=== PATIENT | male | born 1980 | race Caucasian/White ===

== ENCOUNTER 2025-03-06 03:49 | Observation (INO) ==
--- NOTE | 2025-03-06 04:08 | Emergency Department Note ---
History of Present Illness General Chief complaint: Rectal Pain Stated complaint: poss hernia or perianal abcess Time Seen by Provider: 03/06/25 04:00 History of Present Illness Maximum Pain Intensity: 8 This 44-year-old male presents ER complaining of rectal pain for the past 3 days steadily getting worse. Patient denies rectal bleeding, injury to the area, fever, chills or any other medical complaints. No history of pilonidal abscess. No diabetes. Home Medications Medication Instructions Recorded Confirmed Type No Known Home Medications 08/27/19 08/27/19 History omeprazole 40 mg capsule,delayed 40 mg PO DAILY 03/06/25 03/06/25 History release Allergies Allergy/AdvReac Type Severity Reaction Status Date / Time No Known Allergies Allergy Mild Verified 03/06/25 05:13 Past Med/Surg History Problem List (Updated 03/06/25 @ 04:40 by Charleen Meredith PA-C) Perianal abscess (Acute) Encounter for physical examination related to employment Medical History (Updated 03/06/25 @ 04:40 by Charleen Meredith PA-C) No significant past medical history Social History Smoking Status: Current every day smoker Preferred Language: Spanish Feels Safe at Home: Yes Review of Systems A total of 10 systems reviewed and were otherwise negative Physical Exam Vital Signs Vital Signs - 24 hr 03/06/25 03:53 03/06/25 04:20 Temperature 36.6 C Temperature Source Temporal Artery Scan Pulse Rate 75 76 Pulse Rhythm Regular Pulse Strength Normal Respiratory Rate 18 18 Respiratory Effort / Characteristics Non-Labored Spontaneous Respiratory Depth Normal Respiratory Pattern Regular Blood Pressure 132/93 Blood Pressure Mean 106 Blood Pressure Position Sitting Pulse Oximetry 98 98 Oxygen Delivery Method Room Air Room Air Sepsis Recent Fever Within 48 Hours No Sepsis New/Unexplained Change in Mental Status N/A Sepsis Action Taken by Nursing No Action Required VITALS: Vitals are noted on the nurse's note and reviewed by myself. Vital signs stable. GENERAL: Pleasant patient, in no acute distress, nondiaphoretic, well-developed well-nourished. SKIN: Capillary reflex less than 2 seconds. HEENT: Normocephalic. PERRLA. EOMI. Nares patent. Mucous membranes moist. Neck is supple without nuchal rigidity. HEART: Regular rate and rhythm LUNGS: Clear to auscultation bilaterally without wheezes, rales or rhonchi. No retractions or accessory muscle use. ABDOMEN: Positive bowel sounds x 4. Normal tympanic percussion. Soft, nontender, without masses or organomegaly. Solis sign negative. No guarding or rebound tenderness. no CVA tenderness Rectal exam: 3:00 palpable abscess exquisitely tender to palpation. No obvious fissures or tears. Parts Salesman of the nurse present. MUSCULOSKELETAL: No gross musculoskeletal defects. NEURO: Patient was alert and oriented to person place and time. No focal neurological deficits. Course Administered Medications Discontinued Medications Acetaminophen (Ofirmev) 1,000 mg in 100 mls @ 400 mls/hr IV NOW STA Stop: 03/06/25 04:20 Last Infusion: 03/06/25 04:59 Dose: Infused Documented By: Admin: 03/06/25 04:11 Dose: 400 mls/hr Documented By: EMMANUEL Piperacillin Sod/Tazobactam Sod (Zosyn) 4.5 gm in 100 mls @ 200 mls/hr IV NOW ONE; Protocol Stop: 03/06/25 04:35 Last Infusion: 03/06/25 04:59 Dose: Infused Documented By: Admin: 03/06/25 04:11 Dose: 200 mls/hr Documented By: EMMANUEL Ioversol (Optiray 320 100ml) 100 ml IV ONCE ONE Stop: 03/06/25 04:25 Last Admin: 03/06/25 04:24 Dose: 93 ml Documented By: NORMA Medical Decision Making Medical Records Attestation: I reviewed the patient's medical records. Home Medications Current Medication List: was personally reviewed by me Laboratory Data Attestation: I reviewed the patient's lab results. 03/06/25 04:14 03/06/25 04:14 Lab Results 03/06/25 Range/Units 04:14 WBC 19.22 H (4.8-10.8) K/ul RBC 4.63 L (4.70-6.10) M/uL Hgb 14.8 (14.0-18.0) g/dl POC Hgb 15.3 (14.0-18.0) g/dl Hct 42.0 (42.0-52.0) % POC Hct 45 (42-52) % MCV 90.7 (80.0-100.0) fL MCH 32.0 (25.0-34.0) pg MCHC 35.2 (32.0-36.0) g/dL RDW Std Deviation 40.3 (36.4-46.3) fL RDW Coeff of Art 12.1 (11.5-14.5) % Plt Count 293 (130-400) K/uL MPV 10.3 (9.4-12.4) fL Immature Gran % (Auto) 0.3 % Neut % (Auto) 66.1 % Lymph % (Auto) 21.1 % [place] % (Auto) 9.4 % Eos % (Auto) 2.7 % Baso % (Auto) 0.4 % Neut # (Auto) 12.69 H (1.40-6.50) K/uL Lymph # (Auto) 4.06 H (1.20-3.40) K/uL [place] # (Auto) 1.81 H (0.11-0.59) K/uL Eos # (Auto) 0.52 H (0.00-0.50) K/uL Baso # (Auto) 0.08 (0.00-0.20) K/uL Immature Gran # (Auto) 0.06 (0.01-0.20) K/uL POC Sodium 140 (135-144) mmol/L Sodium 137 (136-145) mmol/L POC Potassium 4.3 (3.3-5.0) mmol/L Potassium 4.2 (3.5-5.1) mmol/L POC Chloride 108 (101-112) mmol/L Chloride 108 H (98-107) mmol/L Carbon Dioxide 21 (21-32) mmol/L POC Total CO2 22 L (24-31) mmol/L Anion Gap 8 (3-11) POC Anion Gap 16.0 (16-25) mmol/L POC BUN 10 (7-18) mg/dl BUN 10 (6-23) mg/dl Creatinine 0.81 (0.6-1.4) mg/dl POC Creatinine 0.9 (0.6-1.3) mg/dl Est Cr Clr Drug Dosing 121.2 ml/min eGFR 112.19 BUN/Creatinine Ratio 12.3 (10-20) Glucose 105 H (70-99(Fasting)) mg/dl POC Glucose (other) 104 H (70-99) mg/dl Calcium 9.3 (8.6-10.3) mg/dl POC Ioniz Calcium [place] 1.19 (1.12-1.32) mmol/l Total Bilirubin 0.6 (0.2-1.0) mg/dl AST 15 (13-39) U/L ALT 18 (7-52) U/L Alkaline Phosphatase 70 (34-104) U/L Total Protein 7.2 (6.0-8.3) gm/dl Albumin 4.1 (3.4-5.0) gm/dl Globulin 3.1 (2.5-4.0) gm/dl Albumin/Globulin Ratio 1.3 (0.9-2) Imaging Data Attestation: I personally reviewed and interpreted this imaging study as follows: Radiologist's Impression: Abdomen/Pelvis CT 03/06/25 04:05 EXAM: CT abd pelvis IV con only CLINICAL HISTORY: severe rectal pain, ? abscess TECHNIQUE: Contiguous axial images were obtained from the level of the diaphragm to the pubic symphysis with intravenous contrast. Coronal and sagittal reconstructions were likewise performed and indicated to increase the sensitivity for detecting clinically relevant pathology. If IV contrast material had not been administered, the likelihood of detecting abnormalities relevant to the patient's condition would have been substantially decreased. CT scan was performed according to ALARA (as low as reasonable achievable). COMPARISON: None FINDINGS: The visualized lung bases are clear. The liver is normal in size and reduced attenuation. No focal liver lesions are seen. There is no intra or extrahepatic biliary ductal dilatation. Hepatic vasculature is patent. The gallbladder is present. The spleen, pancreas, and adrenal glands are unremarkable. Hypodense lesion measuring about 10 mm is noted involving spleen - appear simple cyst. The kidneys are normal in size and attenuation. There is no hydronephrosis or perinephric fat stranding. No renal calculi or renal masses are identified. Tiny concretion noted involving left kidney. The ureters are normal in caliber and no ureteral calculi are seen. The bladder is normal in contour. Pelvic viscera are unremarkable. No focal or diffuse bowel wall thickening or evidence of bowel obstruction is identified. The appendix is visualized in the right lower quadrant and appears within normal limits. Abdominal and pelvic vasculature is patent. No adenopathy or fluid collections are seen. No aggressive appearing osseous lesions are identified. Approximately 8.3 x 16 mm size peripherally enhancing hypodense lesion is noted adjacent to the right side of the anal verge- possibility of perianal abscess likely. IMPRESSION: 1. Approximately 8.3 x 16 x 32 mm size peripherally enhancing hypodense lesion is noted adjacent to the right side of anal verge- possibility of perianal abscess likely. 2. Hepatic steatosis. 3. Tiny left renal concretion. 4. A small hypodense lesion is noted in spleen - appears benign/simple cyst. Electronically signed by Harrison Pollock 03-06-2025 05:22 AM [facility] Narrative Prior records reviewed and summarized as above. Triage Nursing notes reviewed. Additional history obtained from nursing. The patient's history was concerning for swelling and redness of the rectum Differential diagnosis: Etiologies such as hemorrhoid, rectal prolapse, cellulitis, abscess, MRSA infection, necrotizing fasciitis, as well as others were entertained.. Physical examination: As above ER treatment provided: Zosyn and Tylenol ordered Morphine was ordered for pain On reassessment the patient felt better. Diagnostics interpreted by me: The labs Independently Interpreted by myself revealed leukocytosis, stable H&H Imaging studies: Imaging was reviewed and read by radiology Consultation: A consultation was placed with the hospitalist. The case was discussed and diagnostics were reviewed. The patient was evaluated in the ER for further treatment. Consultation was placed with surgery and the case was discussed. They did evaluate the patient and recommend medical admission. This appears to be perianal abscess. Patient was given antibiotics upon initial evaluation. Medicine and surgery were consulted. Patient was admitted to the medical service. By the evaluation outlined above emergent etiologies such as necrotizing fasciitis, as well as others were deemed relatively unlikely. The pt informed about the findings as listed above. All questions were answered and pleased with the treatment. The chart was completed utilizing [employer] Speech voice recognition software. Grammatical errors, random word insertions, pronoun errors, and incomplete sentences are an occassional consequence of this system due to software limitations, ambient noise, and hardware issues. Any formal questions or concerns about the content, text, or information contained within the body of this dictation should be directly addressed to the physician academic affairs assistant for clarification. Impression & Plan Perianal abscess Discharge Plan Visit Data Chief Complaint: Rectal Pain Stated Complaint: poss hernia or perianal abcess ED Provider: Devonte Alfredo ED Midlevel Provider: Charleen Meredith Discharge Problem: Perianal abscess Patient Disposition: Admitted As Inpatient Condition: Good Forms Stand Alone Forms: My [facility] [place] [employer] Prescriptions Prescriptions: No Action No Known Home Medications omeprazole 40 mg Capsule,Delayed Release(Dr/Ec) 40 mg PO DAILY Referrals Referrals: PCP,NO [Physician] -
[2025-03-06] MEDS: PIPERACILLIN/TAZOBACTAM 4.5 GM/100 ML BAG IV ONE (04:11)
[2025-03-06] MEDS: ACETAMINOPHEN 1,000 MG/100 ML VIAL IV STA (04:11)
[2025-03-06] MEDS: OPTIRAY 320 100ml IV ONE (04:24)
[2025-03-06 04:27] LABS: Basophils # (auto) 0.08 K/uL (0.00-0.20); Basophils % (auto) 0.4 %; Eosinophils # (auto) 0.52 K/uL (0.00-0.50); Eosinophils % (auto) 2.7 %; Hemoglobin 14.8 g/dl (14.0-18.0); Immature Granulocytes # (auto) 0.06 K/uL (0.01-0.20); Immature Granulocytes % (auto) 0.3 %; Lymphocytes # (auto) 4.06 K/uL (1.20-3.40); Lymphocytes % (auto) 21.1 %; Mean Corpuscular Hgb Conc 35.2 g/dL (32.0-36.0); Mean Corpuscular Volume 90.7 fL (80.0-100.0); Mean Platelet Volume 10.3 fL (9.4-12.4); Monocytes # (auto) 1.81 K/uL (0.11-0.59); Monocytes % (auto) 9.4 %; Neutrophils # (auto) 12.69 K/uL (1.40-6.50); Neutrophils % (auto) 66.1 %; Platelet Count 293 K/uL (130-400); RDW Coefficient of Variation 12.1 % (11.5-14.5); RDW Standard Deviation 40.3 fL (36.4-46.3); Red Blood Count 4.63 M/uL (4.70-6.10); White Blood Count 19.22 K/ul (4.8-10.8)
[2025-03-06 04:43] LABS: Albumin Globulin Ratio 1.3 (0.9-2); BUN Creatinine Ratio 12.3 (10-20); Bilirubin,Total 0.6 mg/dl (0.2-1.0); Calcium 9.3 mg/dl (8.6-10.3); Creatinine Clr Calc Pharmacy 121.2 ml/min; Globulin 3.1 gm/dl (2.5-4.0); Potassium 4.2 mmol/L (3.5-5.1); Total Protein 7.2 gm/dl (6.0-8.3)
--- NOTE | 2025-03-06 05:04 | History & Physical Report ---
Date of Service March 06, 2025 Assessment & Plan (1) Perianal abscess: Plan: Assessment and plan below following discussion of case with ED provider and reviewing patient history/pertinent normal/abnormal diagnostic test results. Perianal abscess No sepsis for now GERD on PPI ADHD, stable on as needed medication Hyperglycemia rule out DM Ongoing tobacco abuse Admit to [facility] General Surgery consult RE perianal abscess (ED provider read in touch with provider on-call.) N.p.o. until seen by service in anticipation of procedure Check hemoglobin A1c Nicotine patch as needed DVT prophylaxis. SCDs RE possible procedure Full code Text document was generated using Jin[employer] recognition software. It may contain grammatical or spelling errors. Kindly contact undersigned for clarification of any documentation item in question. History of Present Illness Chief Complaint: Rectal pain Primary Care Provider: [place], History obtained from patient, family, and records. Medical history significant for GERD, ADHD, ongoing tobacco abuse. 3 days ago, patient noted progressively enlarging perianal mass associated with pain. No fever, no chills. No bleeding. Possible small bumps in the past which spontaneously resolved as per patient. IV Zosyn administered at the ER. 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 Allergies Allergy/AdvReac Type Severity Reaction Status Date / Time No Known Allergies Allergy Mild Verified 03/06/25 05:13 Home Medications Medication Instructions Recorded Confirmed Type No Known Home Medications 08/27/19 08/27/19 History omeprazole 40 mg capsule,delayed 40 mg PO DAILY 03/06/25 03/06/25 History release Past Med/Surg History Problem List Perianal abscess (Acute) Encounter for physical examination related to employment Medical History No significant past medical history Social History Smoking Status: Current every day smoker Preferred Language: Cambodian Feels Safe at Home: Yes Review of Systems Review of Systems: As per HPI, all other systems reviewed and negative Physical Exam Physical Exam: GENERAL: Comfortable, obese, pleasant, no respiratory distress SKIN: Normal color, warm HEENT: [place] palpebral conjunctivae, no ptosis, moist buccal mucosa NECK : Supple, no tenderness CHEST : CTA, no tenderness HEART : RRR, no obvious murmurs ABDOMEN: Some distention, nontender RECTAL : Tender perianal swelling EXTREMITIES : No LE swelling/tenderness, palpable pulses, no other conspicuous deformities noted NEUROLOGIC : Coherent, no facial asymmetry, no other gross focality Results & Data Results & Data Vital Signs (Past 12 Hours) Vital Signs Temp Pulse Resp BP Pulse Ox O2 Del Method 03/06/25 04:20 76 18 98 Room Air 03/06/25 03:53 36.6 C 75 18 132/93 98 Room Air Laboratory Results Laboratory Results WBC 19.22 K/ul (4.8-10.8) H 03/06/25 04:14 RBC 4.63 M/uL (4.70-6.10) L 03/06/25 04:14 Hgb 14.8 g/dl (14.0-18.0) 03/06/25 04:14 Hct 42.0 % (42.0-52.0) 03/06/25 04:14 MCV 90.7 fL (80.0-100.0) 03/06/25 04:14 MCH 32.0 pg (25.0-34.0) 03/06/25 04:14 MCHC 35.2 g/dL (32.0-36.0) 03/06/25 04:14 RDW Std Deviation 40.3 fL (36.4-46.3) 03/06/25 04:14 RDW Coeff of Art 12.1 % (11.5-14.5) 03/06/25 04:14 Plt Count 293 K/uL (130-400) 03/06/25 04:14 MPV 10.3 fL (9.4-12.4) 03/06/25 04:14 Immature Gran % (Auto) 0.3 % 03/06/25 04:14 Neut % (Auto) 66.1 % 03/06/25 04:14 Lymph % (Auto) 21.1 % 03/06/25 04:14 [place] % (Auto) 9.4 % 03/06/25 04:14 Eos % (Auto) 2.7 % 03/06/25 04:14 Baso % (Auto) 0.4 % 03/06/25 04:14 Neut # (Auto) 12.69 K/uL (1.40-6.50) H 03/06/25 04:14 Lymph # (Auto) 4.06 K/uL (1.20-3.40) H 03/06/25 04:14 [place] # (Auto) 1.81 K/uL (0.11-0.59) H 03/06/25 04:14 Eos # (Auto) 0.52 K/uL (0.00-0.50) H 03/06/25 04:14 Baso # (Auto) 0.08 K/uL (0.00-0.20) 03/06/25 04:14 Immature Gran # (Auto) 0.06 K/uL (0.01-0.20) 03/06/25 04:14 Sodium 137 mmol/L (136-145) 03/06/25 04:14 Potassium 4.2 mmol/L (3.5-5.1) 03/06/25 04:14 Chloride 108 mmol/L (98-107) H 03/06/25 04:14 Carbon Dioxide 21 mmol/L (21-32) 03/06/25 04:14 Anion Gap 8 (3-11) 03/06/25 04:14 BUN 10 mg/dl (6-23) 03/06/25 04:14 Creatinine 0.81 mg/dl (0.6-1.4) 03/06/25 04:14 Est Cr Clr Drug Dosing 121.2 ml/min 03/06/25 04:14 eGFR 112.19 03/06/25 04:14 BUN/Creatinine Ratio 12.3 (10-20) 03/06/25 04:14 Glucose 105 mg/dl (70-99(Fasting)) H 03/06/25 04:14 Calcium 9.3 mg/dl (8.6-10.3) 03/06/25 04:14 Total Bilirubin 0.6 mg/dl (0.2-1.0) 03/06/25 04:14 AST 15 U/L (13-39) 03/06/25 04:14 ALT 18 U/L (7-52) 03/06/25 04:14 Alkaline Phosphatase 70 U/L (34-104) 03/06/25 04:14 Total Protein 7.2 gm/dl (6.0-8.3) 03/06/25 04:14 Albumin 4.1 gm/dl (3.4-5.0) 03/06/25 04:14 Globulin 3.1 gm/dl (2.5-4.0) 03/06/25 04:14 Albumin/Globulin Ratio 1.3 (0.9-2) 03/06/25 04:14 CT abdomen pelvis: 1. Approximately 8.3 x 16 x 32 mm size peripherally enhancing hypodense lesion is noted adjacent to the right side of anal verge- possibility of perianal abscess likely. 2. Hepatic steatosis. 3. Tiny left renal concretion. 4. A small hypodense lesion is noted in spleen - appears benign/simple cyst.
[2025-03-06 05:11] LABS: iSTAT Creatinine 0.9 mg/dl (0.6-1.3); iSTAT Hemoglobin 15.3 g/dl (14.0-18.0); iSTAT Ionized Calcium 1.19 mmol/l (1.12-1.32); iSTAT Potassium 4.3 mmol/L (3.3-5.0)
--- NOTE | 2025-03-06 05:22 | CT Scan Report ---
EXAM: CT abd pelvis IV con only CLINICAL HISTORY: severe rectal pain, ? abscess TECHNIQUE: Contiguous axial images were obtained from the level of the diaphragm to the pubic symphysis with intravenous contrast. Coronal and sagittal reconstructions were likewise performed and indicated to increase the sensitivity for detecting clinically relevant pathology. If IV contrast material had not been administered, the likelihood of detecting abnormalities relevant to the patient's condition would have been substantially decreased. CT scan was performed according to ALARA (as low as reasonable achievable). COMPARISON: None FINDINGS: The visualized lung bases are clear. The liver is normal in size and reduced attenuation. No focal liver lesions are seen. There is no intra or extrahepatic biliary ductal dilatation. Hepatic vasculature is patent. The gallbladder is present. The spleen, pancreas, and adrenal glands are unremarkable. Hypodense lesion measuring about 10 mm is noted involving spleen - appear simple cyst. The kidneys are normal in size and attenuation. There is no hydronephrosis or perinephric fat stranding. No renal calculi or renal masses are identified. Tiny concretion noted involving left kidney. The ureters are normal in caliber and no ureteral calculi are seen. The bladder is normal in contour. Pelvic viscera are unremarkable. No focal or diffuse bowel wall thickening or evidence of bowel obstruction is identified. The appendix is visualized in the right lower quadrant and appears within normal limits. Abdominal and pelvic vasculature is patent. No adenopathy or fluid collections are seen. No aggressive appearing osseous lesions are identified. Approximately 8.3 x 16 mm size peripherally enhancing hypodense lesion is noted adjacent to the right side of the anal verge- possibility of perianal abscess likely. IMPRESSION: 1. Approximately 8.3 x 16 x 32 mm size peripherally enhancing hypodense lesion is noted adjacent to the right side of anal verge- possibility of perianal abscess likely. 2. Hepatic steatosis. 3. Tiny left renal concretion. 4. A small hypodense lesion is noted in spleen - appears benign/simple cyst. Electronically signed by Harrison Pollock 03-06-2025 05:22 AM
[2025-03-06] MEDS ORDERED: ACETAMINOPHEN 500 MG TAB PO PRN (05:38)
[2025-03-06] MEDS ORDERED: LORazepam 0.5 MG TAB PO PRN (05:38)
[2025-03-06] MEDS ORDERED: PROMETHAZINE 6.25 MG/50.25 ML BAG IV PRN (05:38)
--- NOTE | 2025-03-06 05:38 | Surgery Consultation ---
Date of Consultation March 06, 2025 Assessment & Plan (1) Perianal abscess: I discussed with the treating clinician the emergency department the patient is being admitted on the hospitalist service. From surgery perspective recommend the following: Antibiotics in form of Zosyn have been initiated and he should continue Serial labs to be followed Analgesics to be provided Patient should be kept n.p.o. for the present time Patient be evaluated Dr. Fernando De Leon of [facility] later this morning and a determination will be made if patient can have a bedside I&D or if he will require incision and drainage in the operating room At the time my interview the patient was nontoxic-appearingshe was normotensive without tachycardia or fever. SCDs alone should be used for DVT prevention until his ascertain whether or not the patient will require any surgical intervention Additional recommendations will be forthcoming based on his clinical course as unfolds as above. discussed options/risks. will proceed today with incision and drainage of panda-rectal abcess today. pt agreeable. History of Present Illness Reason for Consultation: Perirectal abscess History of Present Illness This is a 44-year-old male who presented to the emergency department secondary to rectal pain. The patient says that he noted an ache along the right side of his rectum approximately 1 week ago. He notes over the past 3 to 4 days however the pain has gotten markedly worse. He states he does not have any pain with bowel movements but it is worse with certain Valsalva maneuvers as well as when he sits down. He denies any fevers, shakes, or chills. He denies any history of diabetes. He says that he has had such issues in the past but they usually self drain and resolve spontaneously and he has never required any surgery. Since arrival to the hospital this patient has had labs and imaging which independent reviewed. A CT scan of the abdomen pelvis showed the patient had a perianal abscess measuring 8.3 x 16 x 32 mm. Labs included a CBC will white blood cell count was elevated 19.2. Hemoglobin and hematocrit as well as a platelet count were normal. Chemistry profile showed sodium and potassium as well as the BUN and creatinine were normal. At the time of my interview the patient was resting comfortably in bed he was in no distress. Allergies Allergy/AdvReac Type Severity Reaction Status Date / Time No Known Allergies Allergy Mild Verified 03/06/25 05:13 Home Medications Medication Instructions Recorded Confirmed Type No Known Home Medications 08/27/19 08/27/19 History omeprazole 40 mg capsule,delayed 40 mg PO DAILY 03/06/25 03/06/25 History release Patient History Medical History No significant past medical history Social History Smoking Status: Current every day smoker Tobacco Type: Cigarettes Cigarettes Per Day: pack a day; Second Hand Exposure: No; Do You Dip or Chew Tobacco: No; Tobacco Cessation Education Requested by Patient: No Hx Alcohol Use: Yes Alcohol type: beer Hx Substance Use: No Preferred Language: Lithuanian Communication Ability: Effective Human Resources Operations Coordinator Required: No Beliefs That Will Affect Care: None Current Living Situation: Spouse and Family Current Living Situation Comment: and 3 kids Other Information That Helps Us Care for You: No Feels Safe at Home: Yes Safety Concerns: Feels Safe At This Time Assistive Devices: Glasses Review of Systems Review of Systems: All systems reviewed & are unremarkable except as noted in HPI & below Physical Exam Constitutional: WD/WN, vitals as above Eyes: no conjunctival abnormality ENMT: Ears: no hearing impairment and no external ear abnormality Mouth: no oropharynx abnormality Neck: trachea midline Respiratory: normal respiratory effort; no respiratory distress and no labored breathing Cardiovascular: Rate/Rhythm: regular rate and regular rhythm Gastrointestinal (Abdomen): Abdomen is soft and nondistended. With the female nurse financial reserve clerk present the patient's anus/rectum was examined. The patient had an area of hard/indurated tissue on the right side of his anus. There are no open areas or areas of drainage. Musculoskeletal: No calf tenderness Skin: no rashes Neurologic: moves all extremities Psychiatric: A+Ox3, euthymic affect Results & Data Vital Signs (Past 12 Hours) Vital Signs Temp Pulse Resp BP Pulse Ox O2 Del Method 03/06/25 04:20 76 18 98 Room Air 03/06/25 03:53 36.6 C 75 18 132/93 98 Room Air PG Care Time/CCT Total # of Minutes Spent Total Time Spent with Patient: Total time spent is greater than 50% in coordination of care (as documented) at patient's floor/unit and/or counseling patient: Coding Level of Care Code 45799 OFFICE CONSULT LVL Diagnoses Perianal abscess K61.0
[2025-03-06] MEDS: MoRPHine SULFATE 4 MG/ML 1 ML CARP\\VIAL IV STA (05:41)
[2025-03-06] MEDS: ONDANSETRON INJ 2 MG/ML 2 ML VIAL IV STA (05:41)
[2025-03-06] MEDS: SODIUM CHLORIDE 0.9% 1,000 ML IV STA (05:59)
[2025-03-06 06:30] LABS: INR 0.9 (0.9-1.1); Partial Thromboplastin Ratio 1.2; Partial Thromboplastin Time 32 Seconds (21-31); Prothrombin Time 10.2 Seconds (9.0-12.0)
[2025-03-06] MEDS: KETOROLAC TROMETHAMINE 15 MG/ML VIAL IV PRN (07:01)
[2025-03-06 07:12] LABS: Estimated Average Glucose 114 mg/dl; Hemoglobin A1C 5.6 % (4.5-5.6)
[2025-03-06] MEDS ORDERED: 4.5GM X1 IV STA (08:08)
[2025-03-06] MEDS ORDERED: KETAMINE HCL 10MG/ML SYR ONE (09:30)
[2025-03-06] MEDS ORDERED: MIDAZOLAM HCL 1 MG/ML 2ML VIAL ONE (09:30)
[2025-03-06] MEDS ORDERED: DEXAMETHASONE SOD INJ 4 MG/ML VIAL ONE (09:30)
[2025-03-06] MEDS ORDERED: PROPOFOL IV EMULSION 10 MG/ML 20 ML VIAL IV ONE (09:30)
[2025-03-06] MEDS ORDERED: fentaNYL citrate PF 100 MCG/2 ML VIAL ONE (09:30)
[2025-03-06] MEDS ORDERED: ONDANSETRON INJ 2 MG/ML 2 ML VIAL ONE (09:30)
[2025-03-06] MEDS: PIPERACILLIN/TAZOBACTAM 4.5 GM/100 ML BAG IV SCH (09:59)
[2025-03-06] MEDS: oxyCODONE HCL IR 5 MG TAB (IMMEDIATE RELEASE) PO PRN (10:01)
--- NOTE | 2025-03-06 11:53 | Anesthesiology Consultation ---
Date of Service March 06, 2025 Assessment & Plan Chart Review Chart Review: Acceptable Risk for Surgery and Patient NOT seen in Pre Admission Testing Consults Requested none ASA [id number] Proposed Anesthesia Anesthesia Type: General History Surgery Operation Date: 03/06/25 08:40 Proposed Procedures p Drainage of Perirectal Abscess and Rectal Exam Under Anesthesia - Michael De Leon, Height/Weight Height: 5 ft 9 in Weight: 88.5 kg Allergies Allergy/AdvReac Type Severity Reaction Status Date / Time No Known Allergies Allergy Mild Verified 03/06/25 05:13 Medications Home Medications Medication Instructions Recorded Confirmed Last Taken No Known Home Medications 08/27/19 08/27/19 Unknown omeprazole 40 mg capsule,delayed 40 mg PO DAILY 03/06/25 03/06/25 03/05/25 21:00 release Active Medications Generic Name Dose Route Start Last Admin Trade Name Freq PRN Reason Stop Dose Admin Sodium Chloride 1,000 mls @ 100 mls/hr 03/06/25 05:45 03/06/25 05:59 Nss IV 03/06/25 15:44 100 mls/hr .Q10H STA Administration Piperacillin Sod/Tazobactam Sod 4.5 gm in 100 mls @ 25 mls/hr 03/06/25 10:00 03/06/25 09:59 Zosyn IV 03/16/25 09:59 25 mls/hr Q8H BAN Administration Protocol Ketorolac Tromethamine 15 mg 03/06/25 05:38 03/06/25 07:01 Ketorolac Tromethamine 15 Mg/Ml Vial IV 03/11/25 05:37 15 mg Q6H PRN Administration Pain Oxycodone HCl 5 - 10 mg 03/06/25 05:38 03/06/25 10:01 Oxycodone Hcl Ir 5 Mg Tab (Immediate Release) PO 03/20/25 05:37 10 mg QID PRN Administration Pain Past Medical History Medical History No significant past medical history GERD ADHD Hyperglycemia + tobacco obese Exercise / Class Metabolic Activity II 4-5 Yardwork/Stairs/Walk up hill Past Anesthesia History No Hx of Anesthesia Complications and No Family Hx of Anesthesia Complications History of PONV No Hx of PONV and No Hx of Motion Sickness Social History Smoking Status: Current every day smoker Smoking cigarettes per day: pack a day Do You Dip or Chew Tobacco: No Hx Alcohol Use: Yes Alcohol type: beer alcohol intake frequency: holidays/special occasions only Hx Substance Use: No Physical Exam Vital Signs Last Vital Signs Temp 36.8 C 03/06/25 08:10 Pulse 79 03/06/25 08:10 Resp 18 03/06/25 08:10 BP 142/95 H 03/06/25 08:10 Pulse Ox 97 03/06/25 08:10 O2 Del Method Room Air 03/06/25 08:10 Testing Laboratory Results 03/06/25 04:14 03/06/25 04:14 PT 10.2 Seconds (9.0-12.0) 03/06/25 04:14 INR 0.9 (0.9-1.1) 03/06/25 04:14 APTT 32 Seconds (21-31) H 03/06/25 04:14 Hemoglobin A1c 5.6 % (4.5-5.6) 03/06/25 04:14 03/06/25 04:14 POC Glucose (other) 104 H
[2025-03-06] MEDS ORDERED: PROMETHAZINE HCL 6.25 MG in SODIUM CHLORIDE 0.9% 50 ML IV PRN (12:23)
[2025-03-06] MEDS ORDERED: ePHEDrine sulfate 50 MG/ML AMP IV PRN (12:23)
[2025-03-06] MEDS ORDERED: NALOXONE HCL 0.4 MG/1 ML VIAL/CARP IV PRN (12:23)
[2025-03-06] MEDS ORDERED: ATROPINE SULFATE 0.1 MG/ML 10ML SYR IV PRN (12:23)
[2025-03-06] MEDS ORDERED: fentaNYL citrate PF 100 MCG/2 ML VIAL IV PRN (12:23)
[2025-03-06] MEDS ORDERED: ONDANSETRON INJ 2 MG/ML 2 ML VIAL IV PRN (12:23)
[2025-03-06] MEDS ORDERED: FLUMAZENIL 0.1 MG/1 ML 10 ML VIAL IV PRN (12:23)
[2025-03-06] MEDS: GELATIN SPONGE SZ 100 ONE (12:54)
[2025-03-06] MEDS: BUPIVACAINE LIPOSOME 1.3% 266 MG/20 ML VIAL ONE (12:54)
[2025-03-06] MEDS: NEOMYCIN/POLYMYX/BACITR OINT 15 GM TUBE ONE (12:54)
[2025-03-06] MEDS: BUPIVACAINE/EPINEPHRINE 0.5% MPF 1:200,000 30 ML VIAL ONE (12:55)
--- NOTE | 2025-03-06 13:07 | Operative Report ---
PG Post Operative Report Pre & Post Diagnosis Operation Date: 03/06/25 08:40 Pre-Op Diagnosis: Perianal abscess Post-Op Diagnosis: Perianal abscess I identified the patient and participated in the time-out.: Yes Procedure Operation Date: 03/06/25 08:40 Actual Procedures p Drainage of Perirectal Abscess and Rectal Exam Under Anesthesia(Not Applicable) - Michael De Leon DO Surgeon Michael De Leon DO Learning Consultant judy Zavaleta Estimated Blood Loss 5 Findings Consistent with Post-Op Diagnosis Specimens abcess fluid for gram stain/culture Description of Procedure After informed consent was obtained the patient was taken the operating room placed in supine position. After successful placement of a laryngeal mask airway the patient was placed in a high lithotomy position. The perianal area was sterilely prepped and draped in usual fashion. The abscess prevented good visualization of the rectum however I did perform digital rectal exam with no obvious abnormality. I used 30 cc of Marcaine with epinephrine to inject the area around the abscess. The 15 blade scalpel was then used to make a linear incision directly over the abscess. This released a moderate amount of pus. A sample was sent to the lab for Gram stain culture and sensitivity. I thoroughly irrigated the abscess pocket. Half-inch Pen[place] drain was then placed into it and sutured into place using 2-0 silk. A sterile dressing was applied. The patient was placed back into a supine position extubated and transferred to recovery in stable condition. My physician kindergarten assistant was present for the entire case and assisted with exposure drainage and dressing placement. I attest to the content of the Intraoperative Record and any orders documented therein. Any exceptions are noted below.
--- NOTE | 2025-03-06 13:38 | Anesthesiology Progress Note ---
Date of Service March 06, 2025 Anesthesia Post Procedure Vital Signs Vital Signs: Temp Pulse Pulse Pulse Resp BP BP 03/06/25 13:30 36.9 C 85 18 135/76 03/06/25 13:20 86 16 129/71 03/06/25 13:10 89 19 131/71 03/06/25 13:03 36.4 C L 111 H 21 130/85 03/06/25 12:08 37.1 C 91 H 20 127/90 03/06/25 08:10 36.8 C 79 18 142/95 H 03/06/25 07:48 03/06/25 05:50 88 17 03/06/25 04:20 76 18 03/06/25 03:53 36.6 C 75 18 132/93 BP Pulse Ox O2 Del Method O2 Flow Rate 03/06/25 13:30 95 Room Air 03/06/25 13:20 100 Oxymask 4 03/06/25 13:10 100 Oxymask 5 03/06/25 13:03 99 Oxymask 5 03/06/25 12:08 99 Room Air 03/06/25 08:10 97 Room Air 03/06/25 07:48 Room Air 03/06/25 05:50 124/77 97 Room Air 03/06/25 04:20 98 Room Air 03/06/25 03:53 98 Room Air Pain Intensity Buttock: Pain Intensity: 5 Transfer of Care Handoff Completed per policy Notes Mental Status: alert / awake / arousable Patient Amnestic to Procedure: Yes Nausea / Vomiting: adequately controlled Pain: adequately controlled Airway Patency, RR, SpO2: stable & adequate BP & HR: stable & adequate Hydration State: stable & adequate Anesthetic Complications: no major complications apparent
[2025-03-06] MEDS ORDERED: MoRPHine SULFATE 2 MG/ML CARP IV PRN (13:47)
[2025-03-06 13:55] VITALS: RESP 18
[2025-03-06 15:46] VITALS: BP 122/65; PULSE 89; TEMP 98.1; O2SAT 97
--- NOTE | 2025-03-06 16:58 | Discharge Summary ---
Discharge Summary Date of Service March 06, 2025 Principal Dx & Hospital Course #1 = Principal Diagnosis (1) Perianal abscess: per admitting service notes with addendum: Perianal abscess - s/p Drainage of Perirectal Abscess and Rectal Exam Under Anesthesia(Not Applicable) - Rectal abscess drainage: Streptococcus anginosus-nonviable for sensitivities - Cleared for discharge by general surgery discharge on 7-day course of Augmentin twice daily ff up with PCP in 1 week ff up with Gen Surg in 1 week Hepatic steatosis - seen on CT abdomen/pelvis - Further work up, management, and ff up as outpatient GERD on PPI ADHD, stable on as needed medication Ongoing tobacco abuse plan of care discussed with patient and his at bedside in detail and at length all questions answered they are understanding, agreeable, comfortable with the plan of care Notes For Next Care Provider Medication Changes From Visit Augmentin BID x 7 days Oxycodone PRN Admission HPI Per Admitting Provider History obtained from patient, family, and records. Medical history significant for GERD, ADHD, ongoing tobacco abuse. 3 days ago, patient noted progressively enlarging perianal mass associated with pain. No fever, no chills. No bleeding. Possible small bumps in the past which spontaneously resolved as per patient. IV Zosyn administered at the ER. 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 Admission Exam Per Admitting Provider GENERAL: Comfortable, obese, pleasant, no respiratory distress SKIN: Normal color, warm HEENT: Aragon palpebral conjunctivae, no ptosis, moist buccal mucosa NECK : Supple, no tenderness CHEST : CTA, no tenderness HEART : RRR, no obvious murmurs ABDOMEN: Some distention, nontender RECTAL : Tender perianal swelling EXTREMITIES : No LE swelling/tenderness, palpable pulses, no other conspicuous deformities noted NEUROLOGIC : Coherent, no facial asymmetry, no other gross focality Discharge Exam General- oriented x 3, not in distress, speaks in sentences with no effort or accessory muscle use Eyes- anicteric Neck- no JVD Lungs- clear breath sounds bilaterally, no rales/wheezes Heart- normal rate, regular rhythm; no murmurs Abdomen- normal bowel sounds, nondistended, soft, nontender Extremities- no pretibial edema, no calf tenderness Neuro- alert, oriented x 3; no gross focal neurologic deficits Skin- warm & dry Updated Medication List Medication Instructions Recorded Confirmed Type amoxicillin 875 mg-potassium 1 tab PO BID 7 days #14 tabs 03/06/25 Rx clavulanate 125 mg tablet omeprazole 40 mg capsule,delayed 40 mg PO DAILY 03/06/25 03/06/25 History release oxycodone 5 mg tablet 5 - 10 mg (1 - 2 x 5 mg) PO 03/06/25 Rx .[id number] PRN pain, for initial therapy, max 6 tabs per day #15 tabs Hospital Stay Data Consultations 03/06/25 04:51 ED Decision to Admit Stat Procedures Performed Operation Date: 03/06/25 08:40 Actual Procedures p Drainage of Perirectal Abscess and Rectal Exam Under Anesthesia(Not Applicable) - Michael De Leon, Diagnostic Imagining Performed Laboratory Results WBC 19.22 K/ul (4.8-10.8) H 03/06/25 04:14 RBC 4.63 M/uL (4.70-6.10) L 03/06/25 04:14 Hgb 14.8 g/dl (14.0-18.0) 03/06/25 04:14 POC Hgb 15.3 g/dl (14.0-18.0) 03/06/25 04:14 Hct 42.0 % (42.0-52.0) 03/06/25 04:14 POC Hct 45 % (42-52) 03/06/25 04:14 MCV 90.7 fL (80.0-100.0) 03/06/25 04:14 MCH 32.0 pg (25.0-34.0) 03/06/25 04:14 MCHC 35.2 g/dL (32.0-36.0) 03/06/25 04:14 RDW Std Deviation 40.3 fL (36.4-46.3) 03/06/25 04:14 RDW Coeff of Art 12.1 % (11.5-14.5) 03/06/25 04:14 Plt Count 293 K/uL (130-400) 03/06/25 04:14 MPV 10.3 fL (9.4-12.4) 03/06/25 04:14 Immature Gran % (Auto) 0.3 % 03/06/25 04:14 Neut % (Auto) 66.1 % 03/06/25 04:14 Lymph % (Auto) 21.1 % 03/06/25 04:14 Grand % (Auto) 9.4 % 03/06/25 04:14 Eos % (Auto) 2.7 % 03/06/25 04:14 Baso % (Auto) 0.4 % 03/06/25 04:14 Neut # (Auto) 12.69 K/uL (1.40-6.50) H 03/06/25 04:14 Lymph # (Auto) 4.06 K/uL (1.20-3.40) H 03/06/25 04:14 Grand # (Auto) 1.81 K/uL (0.11-0.59) H 03/06/25 04:14 Eos # (Auto) 0.52 K/uL (0.00-0.50) H 03/06/25 04:14 Baso # (Auto) 0.08 K/uL (0.00-0.20) 03/06/25 04:14 Immature Gran # (Auto) 0.06 K/uL (0.01-0.20) 03/06/25 04:14 PT 10.2 Seconds (9.0-12.0) 03/06/25 04:14 INR 0.9 (0.9-1.1) 03/06/25 04:14 APTT 32 Seconds (21-31) H 03/06/25 04:14 PTT Ratio 1.2 03/06/25 04:14 POC Sodium 140 mmol/L (135-144) 03/06/25 04:14 Sodium 137 mmol/L (136-145) 03/06/25 04:14 POC Potassium 4.3 mmol/L (3.3-5.0) 03/06/25 04:14 Potassium 4.2 mmol/L (3.5-5.1) 03/06/25 04:14 POC Chloride 108 mmol/L (101-112) 03/06/25 04:14 Chloride 108 mmol/L (98-107) H 03/06/25 04:14 Carbon Dioxide 21 mmol/L (21-32) 03/06/25 04:14 POC Total CO2 22 mmol/L (24-31) L 03/06/25 04:14 Anion Gap 8 (3-11) 03/06/25 04:14 POC Anion Gap 16.0 mmol/L (16-25) 03/06/25 04:14 POC BUN 10 mg/dl (7-18) 03/06/25 04:14 BUN 10 mg/dl (6-23) 03/06/25 04:14 Creatinine 0.81 mg/dl (0.6-1.4) 03/06/25 04:14 POC Creatinine 0.9 mg/dl (0.6-1.3) 03/06/25 04:14 Est Cr Clr Drug Dosing 121.2 ml/min 03/06/25 04:14 eGFR 112.19 03/06/25 04:14 BUN/Creatinine Ratio 12.3 (10-20) 03/06/25 04:14 Glucose 105 mg/dl (70-99(Fasting)) H 03/06/25 04:14 POC Glucose (other) 104 mg/dl (70-99) H 03/06/25 04:14 Estimat Average Glucose 114 mg/dl 03/06/25 04:14 Hemoglobin A1c 5.6 % (4.5-5.6) 03/06/25 04:14 Calcium 9.3 mg/dl (8.6-10.3) 03/06/25 04:14 POC Ioniz Calcium Ainsley 1.19 mmol/l (1.12-1.32) 03/06/25 04:14 Total Bilirubin 0.6 mg/dl (0.2-1.0) 03/06/25 04:14 AST 15 U/L (13-39) 03/06/25 04:14 ALT 18 U/L (7-52) 03/06/25 04:14 Alkaline Phosphatase 70 U/L (34-104) 03/06/25 04:14 Total Protein 7.2 gm/dl (6.0-8.3) 03/06/25 04:14 Albumin 4.1 gm/dl (3.4-5.0) 03/06/25 04:14 Globulin 3.1 gm/dl (2.5-4.0) 03/06/25 04:14 Albumin/Globulin Ratio 1.3 (0.9-2) 03/06/25 04:14 Impressions Abdomen/Pelvis CT 03/06/25 04:05 EXAM: CT abd pelvis IV con only CLINICAL HISTORY: severe rectal pain, ? abscess TECHNIQUE: Contiguous axial images were obtained from the level of the diaphragm to the pubic symphysis with intravenous contrast. Coronal and sagittal reconstructions were likewise performed and indicated to increase the sensitivity for detecting clinically relevant pathology. If IV contrast material had not been administered, the likelihood of detecting abnormalities relevant to the patient's condition would have been substantially decreased. CT scan was performed according to ALARA (as low as reasonable achievable). COMPARISON: None FINDINGS: The visualized lung bases are clear. The liver is normal in size and reduced attenuation. No focal liver lesions are seen. There is no intra or extrahepatic biliary ductal dilatation. Hepatic vasculature is patent. The gallbladder is present. The spleen, pancreas, and adrenal glands are unremarkable. Hypodense lesion measuring about 10 mm is noted involving spleen - appear simple cyst. The kidneys are normal in size and attenuation. There is no hydronephrosis or perinephric fat stranding. No renal calculi or renal masses are identified. Tiny concretion noted involving left kidney. The ureters are normal in caliber and no ureteral calculi are seen. The bladder is normal in contour. Pelvic viscera are unremarkable. No focal or diffuse bowel wall thickening or evidence of bowel obstruction is identified. The appendix is visualized in the right lower quadrant and appears within normal limits. Abdominal and pelvic vasculature is patent. No adenopathy or fluid collections are seen. No aggressive appearing osseous lesions are identified. Approximately 8.3 x 16 mm size peripherally enhancing hypodense lesion is noted adjacent to the right side of the anal verge- possibility of perianal abscess likely. IMPRESSION: 1. Approximately 8.3 x 16 x 32 mm size peripherally enhancing hypodense lesion is noted adjacent to the right side of anal verge- possibility of perianal abscess likely. 2. Hepatic steatosis. 3. Tiny left renal concretion. 4. A small hypodense lesion is noted in spleen - appears benign/simple cyst. Electronically signed by Harrison Pollock 03-06-2025 05:22 AM 03/06/25 04:05 CT abd pelvis IV con only Stat Pending Results Patient Have Any Pending Studies at Discharge: Yes Discharge Instructions Given to Patient (Per Discharging Provider) Please complete the full course of antibiotics prescribed to you You have a small plastic drain in your rectal wound called a johnna. This is sutured in place to your skin. It will be removed at your follow up appointment. Keep a dry dressing in place to collect any drainage. Change daily or as needed with dry gauze or ABD pad or a panda-pad, secure with either tape or compressive undergarments may shower and take warm sitz baths 3-4x/daily for cleansing and comfort You may purchase Tylenol and/or Ibuprofen over the counter if needed for additional pain control over the next few days. Take per manufacturers instructions PLEASE REFER TO YOUR NEW MEDICATION LIST AND FOLLOW INSTRUCTIONS CAREFULLY. YOUR NEW MEDICATIONS INCLUDE: Augmentin- antibiotic for perianal abscess please take a probiotic daily x 2 weeks and drink plenty of water Oxycodone- as needed for severe pain take a stool softener daily while taking this medication absolutely no driving, operating heavy machinery while taking this medication FATTY LIVER FOUND ON YOUR CT SCAN OF THE ABDOMEN AND PELVIS. LOW FAT DIET, INCREASE EXERCISE WILL NEED CLOSE FOLLOW UP, FURTHER EVALUATION AND MANAGEMENT OUTPATIENT BY YOUR PRIMARY CARE PHYSICIAN PLEASE CALL YOUR PRIMARY CARE PHYSICIAN OR RETURN TO THE ER IF WITH WORSENING OF SYMPTOMS, INCLUDING increasing pain/swelling/drainage/bleeding in the area, fever/chills, changes with bowel movement/diarrhea, etc FOLLOW UP WITH PRIMARY CARE PHYSICIAN IN [address] FOLLOW UP WITH DR. DE LEON- SURGEON- IN 1 WEEK. PLEASE CALL HIS OFFICE FOR AN APPOINTMENT. CONTACT INFORMATION OUTLINED ABOVE. Total Time Total Time Spent Total Time Spent (In Minutes): 45 minutes
[2025-03-06] MEDS ORDERED: PANTOprazole 40 MG TAB PO SCH (21:00)
== END 2025-03-06 15:48 | disposition home or self-care (01) ==
LOC: ED 03:49 → INTOOBSV 05:06 → 3E 05:06